=== PATIENT | male | born 1960 | race American Indian/Alaskan Native ===

== ENCOUNTER 2016-09-24 02:02 | Emergency (ER) | payer MEDICAID ==
[2016-09-24 02:16] VITALS: BP 184/106
--- NOTE | 2016-09-27 14:50 | ED Elopement Review ---
ED Pt Elopement review - Call Back decision Pt Call Back Decision: No action required
== END 2016-09-24 02:40 | disposition left against medical advice (07) ==
LOC: ED 02:02
DX: J02.9 Acute pharyngitis, unspecified (principal); Z72.0 Tobacco use; Z53.21 Procedure and treatment not carried out due to patient leaving prior to being seen by health care provider
CPT/HCPCS: 93005; 93010